=== PATIENT | female | born 1950 | race Caucasian/White ===

== ENCOUNTER 2017-07-07 14:12 | Day surgery (SDC) | END 2017-07-07 17:19 | disposition home or self-care (01) ==

== ENCOUNTER 2018-11-03 07:16 | Day surgery (SDC) | payer MEDICARE, OTHER ==
[~2018-11-03] VITALS: Ht 152.4 cm; Wt 54.0 kg
[~2018-11-03 07:16] MED LIST: ASPI-903 PO; ATOR10TA23 PO; DOCU-144 PO; GLIM1TAB2 PO; MTF1000T PO; SITA100T11 PO
[2018-11-03 08:16] VITALS: BP 121/56; PULSE 51; RESP 16
[2018-11-03] MEDS ORDERED: METF100010 ORAL (08:34)
[2018-11-03] MEDS ORDERED: TOPI100T11 PO (08:34)
[2018-11-03] MEDS ORDERED: GLIM1TAB2 PO (08:34)
[2018-11-03] MEDS ORDERED: ESCI20TA38 ORAL (08:34)
[2018-11-03] MEDS ORDERED: LEVE500T8 ORAL (08:53)
[2018-11-03] MEDS ORDERED: LEVETIRACETAM 250 MG TAB PO ONE (09:00)
== END 2018-11-03 09:49 | disposition home or self-care (01) ==
LOC: SDS 07:16
PROVIDERS: ATTEND Specialist
DX: M23.204 Derangement of unspecified medial meniscus due to old tear or injury, left knee (principal); Z53.8 Procedure and treatment not carried out for other reasons; E11.9 Type 2 diabetes mellitus without complications; I10 Essential (primary) hypertension; G40.909 Epilepsy, unspecified, not intractable, without status epilepticus
CPT/HCPCS: 82962; 85025; 86850; 86900; 86901

== ENCOUNTER → 2018-11-06 | Outpatient (CLI) | payer MEDICARE, OTHER ==
[~2018-11-06] MED LIST changes: -ASPI-903 PO; +BARIUM SULF 2% 450 ML BTL (BERRY SMOOTHIE) PO ONE; -DOCU-144 PO; +ESCI20TA38 ORAL; +LEVE500T8 ORAL; +METF100010 ORAL; -MTF1000T PO; -SITA100T11 PO; +TOPI100T11 PO
== END | disposition home or self-care (01) ==
LOC: C/S 12:05
PROVIDERS: ATTEND Internal Medicine
DX: D69.6 Thrombocytopenia, unspecified (principal)
CPT/HCPCS: 74176